=== PATIENT | female | born 1950 | race Caucasian/White ===

== ENCOUNTER → 2016-07-28 | Outpatient (CLI) | payer BC | END | disposition home or self-care (01) | LOC: CDC 14:47 | DX: Z01.810 Encounter for preprocedural cardiovascular examination (principal) | CPT/HCPCS: 93000 ==

== ENCOUNTER 2017-10-12 08:58 | Day surgery (SDC) | payer BC ==
[~2017-10-12] VITALS: Ht 160 cm; Wt 77.1 kg
[~2017-10-12 08:58] MED LIST: ALTACE10 MG PO; GLUCOPHAGE1000 MG PO; GLUCOTROL XL10 MG PO; MEVACOR20 MG PO; SYNTHROID75 MCG PO; TRADJENTA5 MG PO; TRESIBA FL100 UNIT/1 SC; ZESTRIL5 MG PO
[2017-10-12 09:49] VITALS: BP 158/81
[2017-10-12 13:39] VITALS: BP 133/69
[2017-10-12 14:05] VITALS: BP 146/70
== END 2017-10-12 14:20 | disposition home or self-care (01) ==
LOC: SDC 08:58
PROVIDERS: Urology
DX: N13.30 Unspecified hydronephrosis (principal); R31.0 Gross hematuria; Z87.440 Personal history of urinary (tract) infections; E78.00 Pure hypercholesterolemia, unspecified; E11.9 Type 2 diabetes mellitus without complications; E03.9 Hypothyroidism, unspecified; I10 Essential (primary) hypertension; K21.9 Gastro-esophageal reflux disease without esophagitis; Z87.891 Personal history of nicotine dependence; Z79.4 Long term (current) use of insulin
CPT/HCPCS: 74420; 82948; 88108; 93005; C2625; J0131; J0330; J0690; J1100; J1580

== ENCOUNTER 2017-10-29 15:54 | Inpatient (IN) | payer BC ==
[~2017-10-29] VITALS: Ht 165.1 cm; Wt 77.7 kg
[2017-10-29 16:17] LABS: HEMATOCRIT 41.7 % (36.0-46.0); HEMOGLOBIN 14.2 G/DL (11.9-15.5); MCH 31.3 PG (29.0-34.0); MCHC 34.1 G/DL (30.0-36.0); MCV 91.9 FL (83-99); RBC DIS.WIDTH-CV 12.6 % (11.8-14.6); RBC DIS.WIDTH-SD 41.9 % (39-53); RED BLOOD COUNT 4.54 M/uL (3.80-5.20); WHITE BLOOD COUNT 16.5 K/uL (4.1-10.2)
[2017-10-29 16:28] LABS: APPEARANCE SL.HAZY ((CLEAR)); BILIRUBIN NEGATIVE; BLOOD NEGATIVE; COLOR YELLOW ((YELLOW)); GLUCOSE (STRIP) NEGATIVE; KETONES NEGATIVE; LEUKOCYTES MODERATE; NITRITE NEGATIVE; PROTEIN (STRIP) 30; SPECIFIC GRAVITY 1.008 (1.000-1.030); UROBILINOGEN 0.2 MG/DL (0.2-1.0)
[2017-10-29 16:31] LABS: BACTERIA RARE /HPF; EPITHELIAL CELLS RARE /HPF; MUCUS TRACE /LPF; RED BLOOD CELLS 0-5 /HPF (0-5); UCUL ADDED? YES; WHITE BLOOD CELLS 30-40 /HPF (0-5)
[2017-10-29 16:32] LABS: CHLORIDE 109 mEq/L (99-109); POTASSIUM 3.6 mEq/L (3.7-5.4); SODIUM 144 mEq/L (136-147)
[2017-10-29 16:34] LABS: GLUCOSE 96 mg/dL (70-99)
[2017-10-29 16:38] LABS: CREATININE 0.8 mg/dL (0.6-1.3); GFR ESTIMATE (CALCULATED) > 59 mL/min/
[2017-10-29 16:39] LABS: UREA NITROGEN (BUN) 12 mg/dL (9-23)
[2017-10-29 16:43] LABS: TROP-I INTERPRETATION NEGATIVE; TROPONIN-I < 0.01 ng/mL (0.0-0.30)
[2017-10-29 17:18] LABS: PLAT.SUFFICIENCY ADEQUATE; PLATELET COUNT 268 K/uL (156-360)
[2017-10-29 19:28] LABS: INTER. NORMALIZED RATIO 1.1
[2017-10-29 19:30] LABS: PTT 27.1 SEC (25-37)
[2017-10-29 21:27] LABS: ALBUMIN 4.6 G/DL (3.2-4.8); ALKALINE PHOSPHATASE 56 IU/L (3-129); ALT (GPT) 29 IU/L (3-49); AMYLASE 32 IU/L (1-118); AST (GOT) 26 IU/L (2-34); LIPASE 36 U/L (1.0-51.0); TOTAL BILIRUBIN 0.4 MG/DL (0.0-1.0); TOTAL PROTEIN 7.8 G/DL (6.4-8.3)
[2017-10-29] MEDS ORDERED: NEXIUM20 MG PO (21:30)
[2017-10-29] MEDS ORDERED: BACTRIM,SEPT1 TABLET PO (21:30)
[2017-10-29 23:17] LABS: DIRECT BILIRUBIN 0.1 mg/dL (0.0-0.3)
[2017-10-29 23:24] LABS: SERUM ETHYL ALCOHOL < 10 mg/dL
[2017-10-30] VITALS (7 sets, daily range): BP systolic 114–146; BP diastolic 59–79
[2017-10-30 06:53] LABS: MCH 30.4 PG (29.0-34.0); MCHC 32.9 G/DL (30.0-36.0); MCV 92.1 FL (83-99); PLATELET COUNT 207 K/uL (156-360); RBC DIS.WIDTH-CV 12.6 % (11.8-14.6); RBC DIS.WIDTH-SD 42.3 % (39-53); RED BLOOD COUNT 3.69 M/uL (3.80-5.20); WHITE BLOOD COUNT 9.4 K/uL (4.1-10.2)
[2017-10-30 06:54] LABS: HEMOGLOBIN 11.2 G/DL (11.9-15.5)
[2017-10-30 07:03] LABS: CHLORIDE 108 MEQ/L (99-109); CREATININE 0.9 MG/DL (0.6-1.3); GFR ESTIMATE (CALCULATED) > 59 mL/min/; GLUCOSE 139 mg/dL (70-99); POTASSIUM 4.3 MEQ/L (3.7-5.4); SODIUM 141 MEQ/L (136-147); UREA NITROGEN (BUN) 12 mg/dL (9-23)
[2017-10-31 03:58] VITALS: BP 140/73
[2017-10-31 05:51] LABS: BASOPHIL COUNT 0.1 K/uL (0-0.1); EOSINOPHIL (%) 5.3 % (0-5); EOSINOPHIL COUNT 0.3 K/uL (0-0.3); HEMATOCRIT 35.6 % (36.0-46.0); HEMOGLOBIN 11.8 G/DL (11.9-15.5); IMMATURE GRANULOCYTE (%) 0.2 % (0.0-0.7); LYMPHOCYTE (%) 34.2 % (15-42); MCH 30.9 PG (29.0-34.0); MCHC 33.1 G/DL (30.0-36.0); MCV 93.2 FL (83-99); MONOCYTE (%) 10.7 % (3-12); MONOCYTE COUNT 0.6 K/uL (0-0.8); NEUTROPHIL (%) 48.6 % (45-76); NEUTROPHIL COUNT 2.8 K/uL (1.8-6.4); PLATELET COUNT 211 K/uL (156-360); RBC DIS.WIDTH-CV 12.9 % (11.8-14.6); RED BLOOD COUNT 3.82 M/uL (3.80-5.20); WHITE BLOOD COUNT 5.8 K/uL (4.1-10.2)
[2017-10-31 06:18] LABS: ALBUMIN 3.7 G/DL (3.2-4.8); ALKALINE PHOSPHATASE 41 IU/L (3-129); ALT (GPT) 26 IU/L (3-49); AST (GOT) 19 IU/L (2-34); CHLORIDE 111 MEQ/L (99-109); CREATININE 0.8 MG/DL (0.6-1.3); GFR ESTIMATE (CALCULATED) > 59 mL/min/; GLUCOSE 135 mg/dL (70-99); SODIUM 141 MEQ/L (136-147); TOTAL BILIRUBIN 0.4 MG/DL (0.0-1.0); UREA NITROGEN (BUN) 9 mg/dL (9-23)
[2017-10-31 06:22] LABS: TOTAL PROTEIN 6.6 G/DL (6.4-8.3)
[2017-10-31 07:18] VITALS: BP 129/77
[2017-10-31 10:27] LABS: HEMOGLOBIN A1c (GLYCOHEMOGLOB) 7.2 % (Below 5.7)
[2017-10-31] MEDS ORDERED: CEFTIN500 MG PO (10:31)
== END 2017-10-31 11:43 | disposition home or self-care (01) | DRG 872 ==
LOC: EME 15:54 → EDOF 22:21 → ENRESERV 22:21 → 2EAST 22:21 → ENRESERV 22:34 → 2EAST 23:46
PROVIDERS: Hospitalist; Physician Assistant Medical
DX: A41.9 Sepsis, unspecified organism (principal); N30.01 Acute cystitis with hematuria; I10 Essential (primary) hypertension; E11.9 Type 2 diabetes mellitus without complications; R09.02 Hypoxemia; R91.1 Solitary pulmonary nodule; E87.2 Acidosis; E78.5 Hyperlipidemia, unspecified; N13.30 Unspecified hydronephrosis; K21.9 Gastro-esophageal reflux disease without esophagitis; E87.6 Hypokalemia; E03.9 Hypothyroidism, unspecified; R76.11 Nonspecific reaction to tuberculin skin test without active tuberculosis; N39.3 Stress incontinence (female) (male); K76.0 Fatty (change of) liver, not elsewhere classified; E66.3 Overweight; Z68.28 Body mass index [BMI] 28.0-28.9, adult; B96.20 Unspecified Escherichia coli [E. coli] as the cause of diseases classified elsewhere; K59.09 Other constipation; Z90.710 Acquired absence of both cervix and uterus; Z79.4 Long term (current) use of insulin; Z79.899 Other long term (current) drug therapy; Z87.442 Personal history of urinary calculi; Z87.891 Personal history of nicotine dependence; Z87.440 Personal history of urinary (tract) infections; Z87.11 Personal history of peptic ulcer disease
CPT/HCPCS: 71046; 71275; 74176; 80048; 80053; 80076; 81003; 82150; 82948; 83036; 83605; 83690; 84484; 85025; 85027; 85610; 85730; 87040; 87077; 87086; 87186; 93005; 99281; 99285; G0480; J0696; J1650; J3010; J3480; J7030; J7040